=== PATIENT | female | born 1990 | race Caucasian/White ===

== ENCOUNTER 2016-07-16 12:13 | Observation (INO) | payer OTHER ==
[2016-07-16 12:32] VITALS: BMI 21.4
[2016-07-16] MEDS ORDERED: SODIUM CHLORIDE 1,000 ML IV ONE (12:58)
--- NOTE | 2016-07-16 12:58 | PDOC ---
History of Present Illness - General History Source: Patient Exam Limitations: No Limitations - History of Present Illness Initial Comments: 07/16/16 13:00 The patient is a 25-year-old woman, accompanied by family, with a past medical history of tachycardia(with known SVTs in the past who presents to the emergency department via walk-in for further evaluation for palpitations. Patient reports experiencing similar symptoms in the past, last episode on August 2015, for which she had extensive outpatient workup including an echocardiogram and a 24 Holter monitor, for which she was noted to be tachycardic, but she was informed by her Assistant Child Care Teacher, Dr. Vishnu Flores, that it was regular and advised to take Metoprolol and Carvedilol as needed. Patient states that she was in her usual state of health, last night, laying down, when she started to experience her typical palpitations. She denies drinking caffeine , taking diet pills, and/or anti-decongestives recently. She reports that her palpitations are associated with headaches and pleuritic chest pain for which she took two Advil tablets that provided no relief. She states that she took Metoprolol at 06:30 this morning, that also did not provide relief. Her last menstrual period was on June 08 2016 and she denies any possibilities that she might be . She denies fever, chills, cough, hemoptysis, diaphoresis, shortness of breath, visual changes, lightheadedness, dizziness. She denies jaw/ back pain lower extremity pain/swelling, calf tenderness/pain She denies abdominal pain, nausea, vomiting, diarrhea. Allergies: No Known Drug Allergies. Past Surgical History: Caesarian Section Social History: She denies tobacco, ETOH and recreational drug use. Primary Care Physician: Dr. Vivian Hannon [phone]/ Assistant Child Care Teacher: Dr. Vishnu Chavez [phone] <Mariam Salgado - Last Filed: 07/16/16 17:09> <Fermin Sweeney - Last Filed: 07/16/16 17:10> - General Chief Complaint: Tachycardia Stated Complaint: TACHYCARDIA, FLU SYMPTOMS Time Seen by Provider: 07/16/16 12:57 Past History <Mariam Salgado - Last Filed: 07/16/16 17:09> - Past Medical History Cardiac Disorders: Yes (tachycardia) - Psycho/Social/Smoking Cessation Hx Suicidal Ideation: No Smoking History: Never smoked <Fermin Sweeney - Last Filed: 07/16/16 17:10> - Past Medical History Allergies/Adverse Reactions: Allergies Allergy/AdvReac Type Severity Reaction Status Date / Time No Known Allergies Allergy Verified 07/16/16 12:27 Home Medications: Ambulatory Orders Metoprolol Succinate [Toprol Xl -] 25 mg PO DAILY 07/16/16 Review of Systems - Review of Systems Constitutional: No: Chills, Fever HEENTM: No: Recent change in vision Respiratory: No: Cough, Shortness of Breath Cardiac (ROS): Yes: Palpitations. No: Chest Pain, Edema, Lightheadedness ABD/GI: No: Nausea : No: Burning, Frequency Musculoskeletal: No: Muscle Pain Integumentary: No: Rash Neurological: Yes: Headache, Dizziness. No: Weakness, Ataxia All Other Systems: Reviewed and Negative <Fermin Sweeney - Last Filed: 07/16/16 17:10> *Physical Exam - Vital Signs Last Vital Signs Temp Pulse Resp BP Pulse Ox 99.4 F 133 H 18 129/81 99 07/16/16 12:28 07/16/16 12:28 07/16/16 12:28 07/16/16 12:28 07/16/16 12:28 - Physical Exam Comments: 07/16/16 13:00 GENERAL: The patient is awake, alert, and fully oriented, in no acute distress. HEAD: Normal with no signs of trauma. EYES: Pupils equal, round and reactive to light, extraocular movements intact, sclera anicteric, conjunctiva clear with no pallor. ENT: Ears normal, nares patent, oropharynx clear without exudates. Moist mucous membranes. NECK: Normal range of motion, supple without lymphadenopathy, JVD, or masses. LUNGS: Breath sounds equal, clear to auscultation bilaterally. No wheeze/ crackles. HEART: Tachycardic, regular rate and rhythm without murmur or rub. ABDOMEN: Soft/nontender/nondistended. BS wnl. No guarding or rebound. No palpable masses. No hepatosplenomegaly. EXTREMITIES: Normal range of motion, no edema. No clubbing or cyanosis. No cords, erythema, or tenderness. NEUROLOGICAL: Cranial nerves II through XII grossly intact. Normal speech, normal gait. PSYCH: Normal mood, normal affect. SKIN: Warm, Dry, normal turgor, no rashes or lesions noted. <Mariam Salgado - Last Filed: 07/16/16 17:09> - Vital Signs Last Vital Signs Temp Pulse Resp BP Pulse Ox 99.4 F 133 H 18 129/81 99 07/16/16 12:28 07/16/16 12:28 07/16/16 12:28 07/16/16 12:28 07/16/16 12:28 <Fermin Sweeney - Last Filed: 07/16/16 17:10> Heart Score/ECG Review #1 ECG reviewed & interpreted by me at: 13:04 General ECG Interpretation: Sinus Rhythm, Normal Rate (128), Normal Intervals ( qtc 414), No acute ischemic changes Compared to previous ECG there are: No significant change (02/21/11) <Fermin Sweeney - Last Filed: 07/16/16 17:10> ED Treatment Course - LABORATORY CBC & Chemistry Diagram: 07/16/16 12:59 07/16/16 12:59 - RADIOLOGY Radiograph Interpretation: 07/16/16 17:09 <Mariam Salgado - Last Filed: 07/16/16 17:09> - LABORATORY CBC & Chemistry Diagram: 07/16/16 12:59 07/16/16 12:59 <Fermin Sweeney - Last Filed: 07/16/16 17:10> Medical Decision Making - Medical Decision Making 07/16/16 15:54 Call placed to patient's Assistant Child Care Teacher, Dr. Vishnu Chavez at [phone]. 07/16/16 16:[address] Chavez. 07/16/16 16:[address] Chavez. Accepts case. 07/16/16 16:30 MicroBlogged Hospitalist. 07/16/16 16:[address] Gutierrez. Case discussed. Accepts case. <Mariam Salgado - Last Filed: 07/16/16 17:09> - Medical Decision Making 02/15/17 13:59 A portion of this note was documented by scribe services under my direction. I have reviewed the details of the note, within reason, and agree with the documentation with the following case summary and management plan written by me. Healthy 25-year-old female with history of SVT prescribed metoprolol as needed, reportedly normal workup in the past including echo and Holter monitoring, now presents with persistent palpitations since last night. Patient was in her usual state of normal health, developed regular palpitations since last night, no associated chest pain or shortness of breath, slight lightheadedness but no syncope. No PE risk factors, no stimulants or decongestants, no recent infections or dehydration, no illicit drug use. Has positive family history of arrhythmia, mom is on beta blockers for same reason. Patient took 12.5 mg of carvedilol without relief, presents for evaluation. Tachycardia to 130 Otherwise well-appearing, exam is normal except for regular tachycardia 25-year-old female with exacerbation of underlying SVT, sinus tachycardia on EKG. No risk factors for DVT or PE, review of systems is otherwise negative. Suspect exacerbation of her underlying disease, will rule out electrolyte abnormality. Electrolytes and troponin Chest x-ray Assessed on monitor, given 5 mg of metoprolol intravenously with improved heart rate 115, will add an oral dose Continue to monitor and dispo accordingly. Patient is under the care of Dr. Flores of cardiology, Will dispo with him. 07/16/16 15:57 Labs are completely normal, TSH normal. Chest x-ray normal. Patient remained persistently tachycardic, initially improved to 115, then return to 130. Given persistent tachycardia, d-dimer sent to rule out PE. D-dimer came back very positive at 965. Will proceed with CTA chest PE protocol, reassess. 07/16/16 16:35 D/W Dr. Brady, given persistent of tachycardia will admit for further management. He will consider EP referral. Will admit to hospitalist service, covering Dr. Estrada. 07/16/16 16:45 Accepted for obs tele by Dr. Gutierrez. 07/16/16 17:10 no PE on cta. <Fermin Sweeney - Last Filed: 07/16/16 17:10> *DC/Admit/Observation/Transfer - Attestations Scribe Attestion: 07/16/16 13:01 Documentation prepared by Mariam Salgado, acting as coroner/medical examiner for Fermin Sweeney MD. <Mariam Salgado - Last Filed: 07/16/16 17:09> - Discharge Dispostion Admit: Yes <Fermin Sweeney - Last Filed: 07/16/16 17:10> Diagnosis at time of Disposition: Heart palpitations - Referrals Referrals: Vivian Clarke MD [Primary Care Provider] -
[2016-07-16] MEDS ORDERED: METOPROLOL TARTRATE 5 MG/5 ML VIAL IVPUSH ONE ×2 (13:11→17:24)
[2016-07-16 13:13] LABS: BASOPHIL 0.2 % (0-2.0); EOSINOPHIL 0.2 % (0-4.5); MCH 31.2 pg (25.7-33.7); MCHC 33.2 g/dl (32.0-36.0); MEAN CELL VOLUME 93.9 fl (80-96); MEAN PLT VOLUME 9.8 fl (7.5-11.1); NEUTROPHILS 82.8 % (42.8-82.8); PLATELET COUNT 159 K/MM3 (134-434); RDW 12.5 % (11.6-15.6)
[2016-07-16] MEDS ORDERED: METOPROLOL TARTRATE 5 MG/5 ML VIAL ONE ×2 (13:15→17:43)
[2016-07-16] MEDS ORDERED: METOPROLOL TARTRATE 25 MG TABLET (FP) PO ONE (13:35)
[2016-07-16 13:37] LABS: ANION GAP 9 (8-16); CALCIUM 9.4 mg/dL (8.5-10.1); CO2 27 mmol/L (21-32); CREATININE 0.8 mg/dL (0.55-1.02); GLUCOSE,RANDOM 119 mg/dL (74-106); MAGNESIUM 2.3 mg/dL (1.8-2.4); SGOT/AST 15 U/L (15-37); SGPT/ALT 12 U/L (12-78)
[2016-07-16 13:39] LABS: BILIRUBIN,TOTAL 0.3 mg/dL (0.2-1.0)
[2016-07-16] MEDS ORDERED: METOPROLOL TARTRATE 25 MG TABLET (FP) ONE (13:41)
[2016-07-16 13:42] LABS: ALK PHOS 56 U/L (45-117); TROPONIN I < 0.02 ng/ml (0.00-0.05)
[2016-07-16 15:21] LABS: THYROID STIMULATING HORMONE 1.14 uIU/ml (0.358-3.74)
[2016-07-16 15:34] LABS: INR 1.04 (0.82-1.09); PROTHROMBIN TIME (PATIENT) 11.5 SEC (9.98-11.88)
[2016-07-16] MEDS ORDERED: LORazepam 1 MG TABLET PO ONE (16:11)
[2016-07-16] MEDS ORDERED: LORazepam 0.5 MG TABLET ONE ×2 (16:31→16:32)
[2016-07-16 16:53] LABS: URINE APPEARANCE CLEAR; URINE BILIRUBIN NEGATIVE (NEGATIVE); URINE COLOR STRAW; URINE GLUCOSE (UA) NEGATIVE (NEGATIVE); URINE KETONE NEGATIVE (NEGATIVE); URINE NITRITE NEGATIVE (NEGATIVE); URINE PROTEIN NEGATIVE (NEGATIVE); URINE UROBILINOGEN NEGATIVE E.U./dl (0.2-1.0)
[2016-07-16 17:00] LABS: URINE BLOOD 2+ (NEGATIVE); URINE LEUK ESTERASE 2+ (NEGATIVE)
[2016-07-16 17:05] LABS: URINE RBC 1 /hpf (0-3); URINE WBC 1 /hpf (3-5)
--- NOTE | 2016-07-16 17:43 | HP ---
PCP: Vivian Hannon CHIEF COMPLAINT: Palpitations HISTORY OF PRESENT ILLNESS: This is a 25-year-old woman who comes to the ER complaining of a racing heartbeat that started last night while lying in bed. She found her pulse to be 120. She says she had palpitations last year and was diagnosed with tachycardia. She was treated with metoprolol but it made her blood pressure low. She was then treated with Coreg but it also made her blood pressure low. She denies having chest pain, shortness of breath, dizziness. PAST MEDICAL HISTORY Pre-eclampsia Palpitations PAST SURGICAL HISTORY Allergies No Known Allergies Allergy (Verified 07/16/16 12:27) HOME MEDICATIONS 3 Medication Instructions Recorded Metoprolol Succinate [Toprol Xl -] 25 mg PO DAILY 07/16/16 Social History: Smoking: Never smoked Alcohol: None Drugs: None Recent Travel: No Family History: Unremarkable REVIEW OF SYSTEMS CONSTITUTIONAL: Absent: fever, chills, diaphoresis, generalized weakness, malaise, loss of appetite, weight change HEENT: Absent: rhinorrhea, nasal congestion, throat pain, throat swelling, difficulty swallowing, mouth swelling, ear pain, eye pain, visual changes CARDIOVASCULAR: Present: palpitations. Absent: chest pain, syncope, irregular heart rate, lightheadedness, peripheral edema RESPIRATORY: Absent: cough, shortness of breath, dyspnea with exertion, orthopnea, wheezing, stridor, hemoptysis GASTROINTESTINAL: Absent: abdominal pain, abdominal distension, nausea, vomiting , diarrhea, constipation, melena, hematochezia GENITOURINARY: Absent: dysuria, frequency, urgency, hesitancy, hematuria, flank pain MUSCULOSKELETAL: Absent: myalgia, arthralgia, joint swelling, back pain, neck pain SKIN: Absent: rash, itching, pallor HEMATOLOGIC/IMMUNOLOGIC: Absent: easy bleeding, easy bruising, lymphadenopathy, frequent infections ENDOCRINE: Absent: unexplained weight gain, unexplained weight loss, heat intolerance, cold intolerance NEUROLOGIC: Absent: headache, focal weakness, paresthesias, dizziness, unsteady gait, seizure, mental status changes, bladder or bowel incontinence PSYCHIATRIC: Absent: anxiety, depression, suicidal or homicidal ideation, hallucinations. PHYSICAL EXAMINATION Vital Signs Period Temp Pulse Resp BP Sys/Davis Pulse Ox Last 24 Hr 99.4 F 111-133 17-26 115-129/76-89 99-100 GENERAL: Awake, alert, and fully oriented, in no acute distress. HEAD: Normal with no signs of trauma. EYES: Pupils equal, round and reactive to light, extraocular movements intact, sclerae anicteric, conjunctivae clear. EARS, NOSE, THROAT: Ears normal, nares patent, oropharynx clear without exudates. Moist mucous membranes. NECK: Normal range of motion, supple without lymphadenopathy, JVD, or masses. LUNGS: Breath sounds equal, clear to auscultation bilaterally. No wheezes, and no crackles. No accessory muscle use. HEART: Tachycardic, normal S1 and S2 without murmur, rub or gallop. ABDOMEN: Soft, nontender, not distended, normoactive bowel sounds, no guarding, no rebound, no masses. No hepatomegaly or splenomegaly. MUSCULOSKELETAL: Normal range of motion at all joints. No bony deformities or tenderness. No CVA tenderness. UPPER EXTREMITIES: 2+ pulses, warm, well-perfused. No cyanosis. No clubbing. Cap refill <2 seconds. No peripheral edema. LOWER EXTREMITIES: 2+ pulses, warm, well-perfused. No calf tenderness. No peripheral edema. NEUROLOGICAL: Cranial nerves II-XII intact. Normal speech. Gait not observed. PSYCHIATRIC: Cooperative. Good eye contact. Appropriate mood and affect. SKIN: Warm, dry, normal turgor, no rashes or lesions noted. Laboratory Results - last 24 hr 07/16/16 07/16/16 07/16/16 12:59 12:59 12:59 WBC 8.0 RBC 4.51 Hgb 14.1 Hct 42.3 MCV 93.9 MCHC 33.2 RDW 12.5 Plt Count 159 MPV 9.8 Neutrophils % 82.8 Lymphocytes % 11.3 Monocytes % 5.5 Eosinophils % 0.2 Basophils % 0.2 INR D-Dimer Sodium 138 Potassium 4.0 Chloride 102 Carbon Dioxide 27 Anion Gap 9 BUN 6 L Creatinine 0.8 Creat Clearance w eGFR > 60 Random Glucose 119 H Calcium 9.4 Magnesium 2.3 Total Bilirubin 0.3 AST 15 ALT 12 Alkaline Phosphatase 56 Creatine Kinase 66 Troponin I < 0.02 Total Protein 8.0 Albumin 4.0 TSH 1.14 Serum , Qual Negative Urine Color Urine Appearance Urine pH Ur Specific Harrod Urine Protein Urine Glucose (UA) Urine Ketones Urine Blood Urine Nitrite Urine Bilirubin Urine Urobilinogen Ur Leukocyte Esterase Urine RBC Urine WBC Ur Epithelial Cells 07/16/16 07/16/16 07/16/16 14:38 14:40 16:35 WBC RBC Hgb Hct MCV MCHC RDW Plt Count MPV Neutrophils % Lymphocytes % Monocytes % Eosinophils % Basophils % INR 1.04 D-Dimer 965 H Sodium Potassium Chloride Carbon Dioxide Anion Gap BUN Creatinine Creat Clearance w eGFR Random Glucose Calcium Magnesium Total Bilirubin AST ALT Alkaline Phosphatase Creatine Kinase Troponin I Total Protein Albumin TSH Serum , Qual Urine Color Straw Urine Appearance Clear Urine pH 8.0 Ur Specific Harrod 1.004 Urine Protein Negative Urine Glucose (UA) Negative Urine Ketones Negative Urine Blood 2+ H Urine Nitrite Negative Urine Bilirubin Negative Urine Urobilinogen Negative Ur Leukocyte Esterase 2+ H Urine RBC 1 Urine WBC 1 Ur Epithelial Cells Rare Chest x-ray: No acute process. Chest CTA: No pulmonary embolus or lung pathology. EKG: Sinus tachycardia, rate 128. ASSESSMENT/PLAN: This is a 25-year-old woman with a history of pre-eclampsia and tachycardia who presented to the ER with palpitations. She was found to be in sinus tachycardia with a D-dimer 965. 1. Palpitations secondary to sinus tachycardia - Observe on telemetry - Start Lopressor PO and monitor BP - Serial troponins - Cardiology consult Problem List - Problem (1) Sinus tachycardia Code(s): R00.0 - TACHYCARDIA, UNSPECIFIED Visit type - Emergency Visit Emergency Visit: Yes ED Registration Date: 07/16/16 Care time: The patient presented to the Emergency Department on the above date and was hospitalized for further evaluation of their emergent condition. - New Patient This patient is new to me today: Yes Date on this admission: 07/16/16 - Critical Care Critical Care patient: No
[2016-07-16] MEDS ORDERED: ONDANSETRON 4 MG/2 ML VIAL IVPB PRN (18:53)
[2016-07-16] MEDS ORDERED: ACETAMINOPHEN 325 MG TABLET (FP) PO PRN (18:53)
[2016-07-16] MEDS: METOPROLOL TARTRATE 25 MG TABLET (FP) PO SCH (21:29)
[2016-07-17 07:27] LABS: TROPONIN I < 0.02 ng/ml (0.00-0.05)
[2016-07-17] MEDS: METOPROLOL TARTRATE 25 MG TABLET (FP) PO SCH (09:37)
--- NOTE | 2016-07-17 12:56 | CONSULT ---
Consult - text type - Consultation Consultation Note: Cardiology 25 year old female, no sig PMH came for URI, found to be sinus tach at rest 125-130/minute no cardiac symptoms social NA FH NA PSH NA PMH NA PE: normal vitals normal cardio-pulmonary exam abdomen soft no leg edema Impression: inappropriate sinus tach, invasive procedures benefit unlikely no reversible cause D/W EP Rec: Discharge today Follow-up 1 week stop metoprolol start verapramil 40 mg BID Vit, D, vit B12, thyroids
--- NOTE | 2016-07-17 13:46 | DS ---
Physical Exam: SUBJECTIVE: Patient seen and examined. She denies further palpitations, sob, cp , dyspnea. OBJECTIVE: Vital Signs Period Temp Pulse Resp BP Sys/Davis Pulse Ox Last 24 Hr 98.2 F-98.8 F 102-128 18-122 109-122/65-79 99 PHYSICAL EXAM GENERAL: The patient is awake, alert, and fully oriented, in no acute distress. HEAD: Normal with no signs of trauma. EYES: PERRL, extraocular movements intact, sclera anicteric, conjunctiva clear. ENT: Ears normal, nares patent, oropharynx clear without exudates, moist mucous membranes. NECK: Trachea midline, full range of motion, supple. LUNGS: Breath sounds equal, clear to auscultation bilaterally, no wheezes, no crackles, no accessory muscle use. HEART: Regular rate and rhythm, S1, S2 without murmur, rub or gallop. ABDOMEN: Soft, nontender, nondistended, normoactive bowel sounds, no guarding, no rebound, no hepatosplenomegaly, no masses. EXTREMITIES: 2+ pulses, warm, well-perfused, no edema. NEUROLOGICAL: Cranial nerves II through XII grossly intact. Normal speech, gait not observed. PSYCH: Normal mood, normal affect. SKIN: Warm, dry, normal turgor, no rashes or lesions noted. Laboratory Results - last 24 hr 07/16/16 07/17/16 07/17/16 22:00 05:35 05:35 Creatine Kinase 48 Troponin I < 0.02 < 0.02 Vitamin B12 Cancelled HOSPITAL COURSE: Date of Admission:07/16/16 Date of Discharge: 07/17/16 Minutes to complete discharge: 35 Discharge Summary Reason For Visit: TACHYCARDIA Current Active Problems Heart palpitations (Acute) Sinus tachycardia (Acute) Hospital Course: Initial Hospital Course: Briefly, this 25 year old female admitted from ER complaining of a racing heartbeat that started last night while lying in bed. She found her pulse to be 140's. She had a similar episode palpitations last year for sinus tachycardia. She was seen by Dr. Chavez and placed on lopressor and then coreg but both stopped due to hypotension. She did not follow up after because her symptoms went away. Subsequent Hospital Course/Progress Note/Discharge Summary by P: 1. Palpitations secondary to sinus tachycardia - CTA negative for PE - Trops negative - Telemetry shows sinus tachycardia - Pt given metoprolol with improvement, however some degree of hypotension - Discussed with cardiology, invasive procedures benefit unlikely no reversible cause as this was discussed with EP - Will stop metoprolol - Start verapramil 40mg BID - VIt D to be checked as out - B12 pending - TSH wnl Home with meds above and follow up with cardiology in 1 week Condition: Stable - Instructions Diet, Activity, Other Instructions: Please return to the ED for any new, persistent, or worsening symptoms. Follow up with your PCP in 1 week Follow up with Dr. Chavez next week for follow up and medication evaluation Take new medication twice per day as directed Referrals: Vishnu Chavez MD [Staff Physician] - Vivian Clarke MD [Primary Care Provider] - Disposition: HOME - Home Medications Comprehensive Discharge Medication List: Ambulatory Orders Metoprolol Succinate [Toprol Xl -] 25 mg PO DAILY 07/16/16 Verapamil HCl 40 mg PO BID #60 tablet 07/17/16 This patient is new to me today: Yes Date on this admission: 07/17/16 Emergency Visit: Yes ED Registration Date: 07/16/16 Care time: The patient presented to the Emergency Department on the above date and was hospitalized for further evaluation of their emergent condition. Critical Care patient: No - Discharge Referral Referred to [facility] No
[2016-07-17 15:01] VITALS: BP 97/67; PULSE 105; TEMP 98.1
--- NOTE | 2016-07-17 16:14 | EKG ---
Test Reason : Blood Pressure : / mmHG Vent. Rate : 128 BPM Atrial Rate : 128 BPM P-R Int : 168 ms QRS Dur : 072 ms QT Int : 284 ms P-R-T Axes : 065 069 046 degrees QTc Int : 414 ms SINUS TACHYCARDIA OTHERWISE NORMAL ECG WHEN COMPARED WITH ECG OF 21-FEB-2011 08:54, NO SIGNIFICANT CHANGE WAS FOUND Confirmed by ALIYAH DE LA ROSA MD ([id number]) on 07/17/2016 4:14:39 PM Referred By: Confirmed By:ALIYAH DE LA ROSA MD
== END 2016-07-17 17:30 | disposition home or self-care (01) ==
LOC: JER 12:13 → JERBED 17:33 → J4W 19:40
PROVIDERS: ADMIT Internal Medicine; ATTEND Nurse Practitioner Acute Care
DX: R00.0 Tachycardia, unspecified (principal); R00.2 Palpitations
CPT/HCPCS: 36415; 71010-TC; 71275-TC; 80053; 81003; 81015; 82550; 82607; 83735; 84443; 84484; 84703; 85025; 85379; 85610; 93005; 93010; 99285-25; G0378

== ENCOUNTER 2021-03-05 20:13 | Emergency (ER) | payer OTHER ==
[2021-03-05 20:19] VITALS: BP 116/76; TEMP 98.2; BMI 22.2
[2021-03-05 20:20] VITALS: PULSE 99
[2021-03-05 21:26] LABS: BASO % 0.5 % (0-2.0); EOS % 1.2 % (0-4.5); HEMATOCRIT 35.3 % (32.4-45.2); HEMOGLOBIN 12.2 GM/dL (10.7-15.3); LYMPH % 28.6 % (8-40); MCH 31.8 pg (25.7-33.7); MCHC 34.7 g/dl (32.0-36.0); MEAN CELL VOLUME 91.6 fl (80-96); MEAN PLT VOLUME 9.1 fl (7.5-11.1); NEUT % 60.7 % (42.8-82.8); PH,URINE 6.5 (5.0-8.0); PLATELET COUNT 213 10^3/uL (134-434); RBC 3.85 M/mm3 (3.60-5.2); RDW 12.4 % (11.6-15.6); URINE APPEARANCE CLEAR; URINE BILIRUBIN NEGATIVE (NEGATIVE); URINE COLOR YELLOW; URINE GLUCOSE (UA) NEGATIVE (NEGATIVE); URINE KETONE NEGATIVE (NEGATIVE); URINE LEUK ESTERASE NEGATIVE (NEGATIVE); URINE NITRITE NEGATIVE (NEGATIVE); URINE PROTEIN NEGATIVE (NEGATIVE); URINE UROBILINOGEN 0.2 mg/dL (0.2-1.0); WHITE BLOOD COUNT 8.4 K/mm3 (4.0-10.0)
[2021-03-05 21:44] LABS: ALBUMIN 3.5 g/dl (3.4-5.0); BLOOD UREA NITROGEN 9.3 mg/dL (7-18); CALCIUM 9.1 mg/dL (8.5-10.1)
[2021-03-05] MEDS ORDERED: FAMOTIDINE 10 MG TABLET PO ONE (21:44)
[2021-03-05] MEDS ORDERED: MAG HYDROX/AL HYDROX/SIMETH 30 ML UNIT-DOSE CUP PO ONE (21:44)
[2021-03-05 21:47] LABS: CREATININE 0.7 mg/dL (0.55-1.3)
[2021-03-05 21:49] LABS: BILIRUBIN,TOTAL 0.2 mg/dL (0.2-1); TOT PROT 7.6 g/dl (6.4-8.2)
[2021-03-05] MEDS ORDERED: MAG HYDROX/AL HYDROX/SIMETH 30 ML UNIT-DOSE CUP ONE (21:52)
[2021-03-05] MEDS ORDERED: FAMOTIDINE 10 MG TABLET ONE (21:52)
== END 2021-03-05 22:59 | disposition home or self-care (01) ==
LOC: JER 20:13
DX: K52.9 Noninfective gastroenteritis and colitis, unspecified (principal)
CPT/HCPCS: 36415; 80053; 81003; 82272; 83690; 84703; 85025; 87045; 87046; 99284-25

== ENCOUNTER 2021-04-29 13:25 | Inpatient (IN) | payer OTHER ==
[2021-04-29] MEDS ORDERED: LACTATED RINGERS SOLUTION 1000 ML INFUS.BAG IV ONE (14:27)
[2021-04-29] MEDS ORDERED: ACETAMINOPHEN 1000 MG/100 ML BAG IVPB ONE (14:29)
[2021-04-29] MEDS ORDERED: ACETAMINOPHEN INJECTION 100 ML IVPB ONE (14:50)
[2021-04-29 16:36] LABS: BASO % 0.4 % (0-2.0); EOS % 1.1 % (0-4.5); HEMATOCRIT 39.3 % (32.4-45.2); HEMOGLOBIN 13.4 GM/dL (10.7-15.3); LYMPH % 34.6 % (8-40); MCH 31.8 pg (25.7-33.7); MCHC 34.1 g/dl (32.0-36.0); MEAN CELL VOLUME 93.3 fl (80-96); MEAN PLT VOLUME 10.2 fl (7.5-11.1); MONO % 8.5 % (3.8-10.2); NEUT % 55.4 % (42.8-82.8); PLATELET COUNT 245 10^3/uL (134-434); RBC 4.21 M/mm3 (3.60-5.2); RDW 12.6 % (11.6-15.6); WHITE BLOOD COUNT 7.6 K/mm3 (4.0-10.0)
[2021-04-29 16:43] LABS: PH,URINE 6.5 (5.0-8.0); URINE APPEARANCE CLEAR; URINE BILIRUBIN NEGATIVE (NEGATIVE); URINE COLOR YELLOW; URINE GLUCOSE (UA) NEGATIVE (NEGATIVE); URINE KETONE NEGATIVE (NEGATIVE); URINE LEUK ESTERASE NEGATIVE (NEGATIVE); URINE NITRITE NEGATIVE (NEGATIVE); URINE PROTEIN NEGATIVE (NEGATIVE); URINE UROBILINOGEN 0.2 mg/dL (0.2-1.0)
[2021-04-29 16:44] LABS: HCG,QUALITATIVE URINE Negative
[2021-04-29 17:00] LABS: CALCIUM 9.8 mg/dL (8.5-10.1)
[2021-04-29 17:01] LABS: ALBUMIN 4.1 g/dl (3.4-5.0); BLOOD UREA NITROGEN 10.1 mg/dL (7-18); MAGNESIUM 2.4 mg/dL (1.8-2.4)
[2021-04-29 17:04] LABS: CREATININE 0.7 mg/dL (0.55-1.3)
[2021-04-29 17:05] LABS: BILIRUBIN,TOTAL 0.3 mg/dL (0.2-1); TOT PROT 8.5 g/dl (6.4-8.2)
[2021-04-29] MEDS ORDERED: ACETAMINOPHEN 325 MG TABLET (FP) PO PRN (20:57)
[2021-04-29] MEDS ORDERED: ONDANSETRON 4 MG/2 ML VIAL IVPUSH PRN (23:33)
[2021-04-30] MEDS: VANCOMYCIN 250 MG/5 ML ORAL SOLUTION PO SCH ×4 (01:25→21:49)
[2021-04-30] MEDS: SODIUM CHLORIDE 1,000 ML IV SCH ×2 (01:25→18:52)
[2021-04-30 06:49] LABS: CALCIUM 9.2 mg/dL (8.5-10.1)
[2021-04-30 06:50] LABS: ALBUMIN 3.5 g/dl (3.4-5.0); BLOOD UREA NITROGEN 5.8 mg/dL (7-18); MAGNESIUM 2.3 mg/dL (1.8-2.4)
[2021-04-30 06:52] LABS: BASO % 0.5 % (0-2.0); EOS % 1.8 % (0-4.5); HEMATOCRIT 36.7 % (32.4-45.2); HEMOGLOBIN 12.7 GM/dL (10.7-15.3); LYMPH % 26.5 % (8-40); MCH 32.1 pg (25.7-33.7); MCHC 34.6 g/dl (32.0-36.0); MEAN CELL VOLUME 92.6 fl (80-96); MEAN PLT VOLUME 9.8 fl (7.5-11.1); MONO % 8.6 % (3.8-10.2); NEUT % 62.6 % (42.8-82.8); PLATELET COUNT 220 10^3/uL (134-434); RBC 3.96 M/mm3 (3.60-5.2); RDW 12.3 % (11.6-15.6); WHITE BLOOD COUNT 8.4 K/mm3 (4.0-10.0)
[2021-04-30 06:53] LABS: CREATININE 0.7 mg/dL (0.55-1.3)
[2021-04-30 06:55] LABS: BILIRUBIN,TOTAL 0.4 mg/dL (0.2-1); TOT PROT 7.4 g/dl (6.4-8.2)
[2021-04-30 07:58] LABS: HIV INTERPRETATION NEGATIVE (NEGATIVE)
[2021-04-30 17:56] VITALS: BMI 19.8
[2021-04-30] MEDS: ENOXAPARIN NA (PORCINE) 40 MG/0.4 ML DISP.SYRIN SQ SCH (18:29)
[2021-04-30] MEDS ORDERED: PT OWN MED DRAWER 7, Y5N ONE (18:31)
[2021-05-01] MEDS: SODIUM CHLORIDE 1,000 ML IV SCH ×3 (00:10→22:36)
[2021-05-01] MEDS: VANCOMYCIN 250 MG/5 ML ORAL SOLUTION PO SCH ×5 (00:18→23:38)
[2021-05-01 08:05] LABS: HEMATOCRIT 34.7 % (32.4-45.2); HEMOGLOBIN 11.9 GM/dL (10.7-15.3); MCH 32.2 pg (25.7-33.7); MCHC 34.4 g/dl (32.0-36.0); MEAN CELL VOLUME 93.6 fl (80-96); MEAN PLT VOLUME 10.3 fl (7.5-11.1); PLATELET COUNT 196 10^3/uL (134-434); RBC 3.71 M/mm3 (3.60-5.2); RDW 12.4 % (11.6-15.6); WHITE BLOOD COUNT 5.3 K/mm3 (4.0-10.0)
[2021-05-01 08:26] LABS: CALCIUM 8.9 mg/dL (8.5-10.1)
[2021-05-01 08:27] LABS: BLOOD UREA NITROGEN 5.1 mg/dL (7-18)
[2021-05-01 08:29] LABS: CREATININE 0.5 mg/dL (0.55-1.3)
[2021-05-01 08:31] LABS: BILIRUBIN,TOTAL 0.2 mg/dL (0.2-1); TOT PROT 6.5 g/dl (6.4-8.2)
[2021-05-01] MEDS ORDERED: PT OWN MED DRAWER 7, Y5N ONE ×2 (09:44→15:07)
[2021-05-01] MEDS: ENOXAPARIN NA (PORCINE) 40 MG/0.4 ML DISP.SYRIN SQ SCH (09:49)
[2021-05-01] MEDS: LACTOBACILLUS ACIDOPHILUS 1 TABLET PO SCH (09:49)
[2021-05-01 10:39] LABS: ERYTHROCYTE SEDIMENTATION RATE 14 mm/hr (0-20)
[2021-05-01] MEDS: BANATROL PLUS POWDER PACKET PO SCH ×2 (14:39→17:32)
[2021-05-02] MEDS: VANCOMYCIN 250 MG/5 ML ORAL SOLUTION PO SCH ×2 (05:01→12:39)
[2021-05-02] MEDS ORDERED: PT OWN MED DRAWER 7, Y5N ONE (08:41)
[2021-05-02 08:47] LABS: HEMATOCRIT 38.3 % (32.4-45.2); MCH 31.9 pg (25.7-33.7); MCHC 34.1 g/dl (32.0-36.0); MEAN CELL VOLUME 93.7 fl (80-96); PLATELET COUNT 207 10^3/uL (134-434); RBC 4.09 M/mm3 (3.60-5.2); RDW 12.3 % (11.6-15.6); WHITE BLOOD COUNT 4.3 K/mm3 (4.0-10.0)
[2021-05-02] MEDS: BANATROL PLUS POWDER PACKET PO SCH ×2 (08:59→13:12)
[2021-05-02 09:06] VITALS: BP 104/71; PULSE 80; TEMP 98
[2021-05-02 09:40] LABS: ALBUMIN 3.5 g/dl (3.4-5.0)
[2021-05-02 09:43] LABS: CREATININE 0.7 mg/dL (0.55-1.3)
[2021-05-02 09:45] LABS: BILIRUBIN,TOTAL 0.3 mg/dL (0.2-1); TOT PROT 7.4 g/dl (6.4-8.2)
[2021-05-02 09:48] LABS: CALCIUM 9.5 mg/dL (8.5-10.1)
[2021-05-02] MEDS: LACTOBACILLUS ACIDOPHILUS 1 TABLET PO SCH (10:55)
[2021-05-02] MEDS: ENOXAPARIN NA (PORCINE) 40 MG/0.4 ML DISP.SYRIN SQ SCH (10:55)
== END 2021-05-02 13:17 | disposition home or self-care (01) | DRG 248 ==
LOC: JER 13:25 → JERBED 18:48 → J8W 04-30 17:37
DX: A04.71 Enterocolitis due to Clostridium difficile, recurrent (principal); R10.32 Left lower quadrant pain; R19.7 Diarrhea, unspecified; R00.0 Tachycardia, unspecified
CPT/HCPCS: 36415; 74177-TC; 80053; 81003; 83690; 83735; 84100; 84703; 85025; 85027; 85651; 86140; 87040; 87086; 87186; 87324; 87389; 87449; 93005; 93010; 99285-25; C9803; G0463-25; J0131; Q9967; U0003; U0005

== ENCOUNTER 2021-06-14 08:46 | Emergency (ER) | payer OTHER ==
[2021-06-14 09:04] VITALS: TEMP 98.2; BMI 22.3
[2021-06-14] MEDS ORDERED: ACETAMINOPHEN 1000 MG/100 ML BAG IVPB ONE (09:28)
[2021-06-14] MEDS ORDERED: LACTATED RINGERS SOLUTION 1000 ML INFUS.BAG IV ONE (09:28)
[2021-06-14] MEDS ORDERED: ACETAMINOPHEN INJECTION 100 ML IVPB ONE (09:50)
[2021-06-14 10:31] LABS: BASO % 0.1 % (0-2.0); EOS % 0.2 % (0-4.5); HEMATOCRIT 38.5 % (32.4-45.2); HEMOGLOBIN 12.7 GM/dL (10.7-15.3); LYMPH % 9.4 % (8-40); MCHC 33.1 g/dl (32.0-36.0); MEAN CELL VOLUME 93.8 fl (80-96); MONO % 4.8 % (3.8-10.2); NEUT % 85.5 % (42.8-82.8); PLATELET COUNT 217 10^3/uL (134-434); RDW 12.6 % (11.6-15.6); WHITE BLOOD COUNT 9.8 K/mm3 (4.0-10.0)
[2021-06-14 10:39] LABS: INR 1.12 (0.83-1.09); PROTHROMBIN TIME (PATIENT) 12.9 SEC (9.7-13.0)
[2021-06-14 10:42] LABS: ACTIVATED PTT 24.7 SECONDS (25.2-36.5)
[2021-06-14 11:05] LABS: LACTIC ACID 2.7 mmol/L (0.4-2.0)
[2021-06-14 11:07] LABS: CHLORIDE 106 mmol/L (98-107); SODIUM 142 mmol/L (136-145)
[2021-06-14 11:09] LABS: ALBUMIN 3.9 g/dl (3.4-5.0); ANION GAP 8 MMOL/L (8-16); CALCIUM 9.5 mg/dL (8.5-10.1); CO2 28 mmol/L (21-32); GLUCOSE,RANDOM 101 mg/dL (74-106)
[2021-06-14 11:10] LABS: BLOOD UREA NITROGEN 11.4 mg/dL (7-18)
[2021-06-14 11:12] LABS: CREATININE 0.7 mg/dL (0.55-1.3); SGOT/AST 18 U/L (15-37); SGPT/ALT 18 U/L (13-61)
[2021-06-14 11:14] LABS: BILIRUBIN,TOTAL 0.2 mg/dL (0.2-1); TOT PROT 7.5 g/dl (6.4-8.2)
[2021-06-14 11:15] LABS: ALK PHOS 62 U/L (45-117)
[2021-06-14 12:48] LABS: EPI CELLS 22 /uL (0-25.1); HYALINE CASTS 0 /uL (0-3.1); PH,URINE 7.5 (5.0-8.0); URINE APPEARANCE CLEAR; URINE BACTERIA 261 /uL (0-1359); URINE BILIRUBIN NEGATIVE (NEGATIVE); URINE COLOR YELLOW; URINE GLUCOSE (UA) NEGATIVE (NEGATIVE); URINE KETONE NEGATIVE (NEGATIVE); URINE LEUK ESTERASE NEGATIVE (NEGATIVE); URINE NITRITE NEGATIVE (NEGATIVE); URINE PROTEIN NEGATIVE (NEGATIVE); URINE RBC 103 /uL (0-23.9); URINE UROBILINOGEN 0.2 mg/dL (0.2-1.0); URINE WBC 4 /uL (0-25.8)
[2021-06-14 12:54] LABS: LACTIC ACID 2.1 mmol/L (0.4-2.0)
[2021-06-14 13:52] LABS: URINE CRYSTALS NON SEEN /hpf
[2021-06-14 16:27] VITALS: BP 110/68; PULSE 88
== END 2021-06-14 16:27 | disposition home or self-care (01) ==
LOC: JER 08:46
PROC: 3E033NZ Introduction of Analgesics, Hypnotics, Sedatives into Peripheral Vein, Percutaneous Approach (ICD-10-PCS; principal; 2021-06-14)
PROC: 3E033GC Introduction of Other Therapeutic Substance into Peripheral Vein, Percutaneous Approach (ICD-10-PCS; 2021-06-14)
DX: R10.2 Pelvic and perineal pain (principal)
CPT/HCPCS: 36415; 74174-TC; 76830-TC; 80053; 81003; 82550; 83605; 84484; 84703; 85025; 85610; 85730; 86850; 86900; 86901; 87086; 87491; 87591; 93005; 93010; 99285-25; J0131; Q9967

== ENCOUNTER 2021-10-03 12:02 | Emergency (ER) | payer OTHER ==
[2021-10-03 12:18] VITALS: TEMP 98.2; BMI 22.0
[2021-10-03 13:56] LABS: HEMATOCRIT 37.7 % (32.4-45.2); HEMOGLOBIN 12.7 GM/dL (10.7-15.3); MCH 31.4 pg (25.7-33.7); MCHC 33.7 g/dl (32.0-36.0); MEAN CELL VOLUME 93.2 fl (80-96); RBC 4.04 M/mm3 (3.60-5.2); WHITE BLOOD COUNT 5.8 K/mm3 (4.0-10.0)
[2021-10-03 13:57] LABS: BASO % 0.3 % (0-2.0); LYMPH % 32.9 % (8-40); MEAN PLT VOLUME 9.6 fl (7.5-11.1); MONO % 7.7 % (3.8-10.2); NEUT % 58.1 % (42.8-82.8); PLATELET COUNT 208 10^3/uL (134-434); RDW 12.9 % (11.6-15.6)
[2021-10-03 14:11] LABS: CALCIUM 9.6 mg/dL (8.5-10.1)
[2021-10-03 14:12] LABS: BLOOD UREA NITROGEN 10.2 mg/dL (7-18); MAGNESIUM 2.4 mg/dL (1.8-2.4)
[2021-10-03 14:33] LABS: INR 1.01 (0.83-1.09); PROTHROMBIN TIME (PATIENT) 11.6 SEC (9.7-13.0)
[2021-10-03 14:36] LABS: ACTIVATED PTT 25.8 SECONDS (25.2-36.5)
[2021-10-03 15:31] LABS: ALBUMIN 3.6 g/dl (3.4-5.0); CREATININE 0.6 mg/dL (0.55-1.3)
[2021-10-03 15:33] LABS: BILIRUBIN,TOTAL 0.1 mg/dL (0.2-1)
[2021-10-03 15:34] LABS: TOT PROT 7.4 g/dl (6.4-8.2)
[2021-10-03 16:05] VITALS: BP 124/82; PULSE 86
== END 2021-10-03 16:05 | disposition home or self-care (01) ==
LOC: JER 12:02
DX: K62.5 Hemorrhage of anus and rectum (principal)
CPT/HCPCS: 36415; 80053; 82272; 83735; 84703; 85025; 85610; 85730; 86850; 86900; 86901; 99283-25

== ENCOUNTER 2021-10-07 12:32 | Emergency (ER) | payer OTHER ==
[2021-10-07 12:41] VITALS: BP 121/81; PULSE 103; TEMP 98.3; BMI 22.0
[2021-10-07] MEDS ORDERED: DIPHTH,PERTUSS(ACELL),TET 0.5 ML DISP.SYRIN IM ONE ×2 (13:03→13:11)
== END 2021-10-07 13:15 | disposition home or self-care (01) ==
LOC: JERFT 12:32
PROC: 3E0234Z Introduction of Serum, Toxoid and Vaccine into Muscle, Percutaneous Approach (ICD-10-PCS; principal; 2021-10-07)
DX: T22.111A Burn of first degree of right forearm, initial encounter (principal); T20.10XA Burn of first degree of head, face, and neck, unspecified site, initial encounter
CPT/HCPCS: 90471; 90715; 99284-25

== ENCOUNTER 2023-03-29 11:23 | Emergency (ER) | payer OTHER ==
[2023-03-29 11:28] VITALS: RESP 18; TEMP 98.8; BMI 23.1
[2023-03-29 14:39] LABS: BASO % 0.4 % (0-2.0); EOS % 0.8 % (0-4.5); HEMOGLOBIN 15.3 GM/dL (10.7-15.3); LYMPH % 41.1 % (8-40); MCH 31.6 pg (25.7-33.7); MEAN CELL VOLUME 92.8 fl (80-96); MEAN PLT VOLUME 9.6 fl (7.5-11.1); MONO % 7.6 % (3.8-10.2); NEUT % 50.1 % (42.8-82.8); PLATELET COUNT 237 10^3/uL (134-434); RBC 4.85 M/mm3 (3.60-5.2); RDW 13.4 % (11.6-15.6); WHITE BLOOD COUNT 9.2 K/mm3 (4.0-10.0)
[2023-03-29 14:49] LABS: INR 1.06 (0.83-1.09); PROTHROMBIN TIME (PATIENT) 12.3 SEC (9.7-13.0)
[2023-03-29 14:52] LABS: ACTIVATED PTT 28.7 SECONDS (25.2-36.5)
[2023-03-29 14:57] LABS: POTASSIUM 4.1 mmol/L (3.5-5.1)
[2023-03-29 14:58] LABS: CALCIUM 9.3 mg/dL (8.5-10.1)
[2023-03-29 14:59] LABS: ALBUMIN 3.8 g/dl (3.4-5.0); BLOOD UREA NITROGEN 11.8 mg/dL (7-18)
[2023-03-29 15:02] LABS: CREATININE 0.6 mg/dL (0.55-1.3)
[2023-03-29 15:04] LABS: BILIRUBIN,TOTAL 0.2 mg/dL (0.2-1); TOT PROT 7.7 g/dl (6.4-8.2)
[2023-03-29 15:34] VITALS: BP 108/70; PULSE 84
[2023-03-29] MEDS ORDERED: ACETAMINOPHEN 1000 MG/100 ML BAG IVPB ONE (15:51)
[2023-03-29] MEDS ORDERED: ACETAMINOPHEN INJECTION 100 ML IVPB ONE (16:05)
== END 2023-03-29 18:57 | disposition home or self-care (01) ==
LOC: JER 11:23
PROC: 3E033NZ Introduction of Analgesics, Hypnotics, Sedatives into Peripheral Vein, Percutaneous Approach (ICD-10-PCS; principal; 2023-03-29)
DX: R07.89 Other chest pain (principal); M79.604 Pain in right leg
CPT/HCPCS: 36415; 71275-TC; 80053; 84703; 85025; 85610; 85730; 93005; 93010; 93970-TC; 99285-25; Q9967